=== PATIENT | male | born 2000 | race African-American/Black ===

== ENCOUNTER 2021-04-24 10:37 | Emergency (ER) | payer MEDICAID ==
[~2021-04-24] VITALS: Ht 172.7 cm; Wt 68.2 kg
[2021-04-24 12:27] VITALS: BP 121/88
== END 2021-04-24 12:30 | disposition home or self-care (01) ==
LOC: EMS 10:55
DX: R07.0 Pain in throat (principal); R06.02 Shortness of breath; R11.10 Vomiting, unspecified
CPT/HCPCS: 70360; 99283; 99284